=== PATIENT | female | born 1955 | race Caucasian/White ===

== ENCOUNTER 2019-06-12 20:17 | Inpatient (IN) | payer MEDICARE, MEDICAID ==
[~2019-06-12] VITALS: Ht 152.4 cm; Wt 55.3 kg
[2019-06-12] MEDS ORDERED: normal saline 1000ml 1,000 ML IV ONE (20:34)
[2019-06-12] MEDS ORDERED: methylPREDNISolone sod succ 125mg/2ml vial IV ONE (20:35)
[2019-06-12] MEDS ORDERED: ipratropium/albuterol 3ml nebule NEB ONE (20:35)
[2019-06-12 21:10] LABS: ABG BASE EXCESS 2.1 mmol/L (-2.0-3.0); ABG HCO3 29.9 mmol/L (22.0-26.0); ABG OXYGEN SATURATION 93.5 % (95-98); ABG PCO2 (T) 61.6 mmHg (35.0-45.0); ABG PH (T) 7.301 (7.350-7.450); ABG PO2 (T) 69.8 mmHg (83-108); ALLEN'S TEST Positive; FCOHb 1.9 % (0.5-1.5); FLOW 1 L/min; FMetHb 0.2 % (0.3-1.12); FO2Hb 91.5 % (94-100); PATIENT TEMPERATURE 36.5; RESPIRATORY RATE (OBSERVED) 12 b/min; TOTAL HEMOGLOBIN 11.4 G/dl (12.0-16.0)
[2019-06-12 21:21] LABS: BASOPHILS % (AUTO) 0.7 % (0-1); EOSINOPHILS # (AUTO) 0.2 X10'3 (0-0.9); EOSINOPHILS % (AUTO) 3.2 % (0-6); HEMATOCRIT 33.2 % (35.0-45.0); HEMOGLOBIN 10.9 g/dl (12.0-16.0); LYMPHOCYTES # (AUTO) 1.7 X10'3 (1.1-4.8); LYMPHOCYTES % (AUTO) 32.6 % (21-51); MEAN CORPUSCULAR HEMOGLOBIN 31.9 PG (27.0-31.0); MEAN CORPUSCULAR HGB CONC 32.8 g/dL (33.0-36.5); MEAN PLATELET VOLUME 5.9 FL (7.4-10.4); MONOCYTES # (AUTO) 0.3 X10'3 (0-0.9); MONOCYTES % (AUTO) 4.9 % (2-12); NEUTROPHILS # (AUTO) 3.1 X10'3 (1.8-7.7); NEUTROPHILS % (AUTO) 58.6 % (42-75); PLATELET COUNT 238 X10'3 (140-440); RED BLOOD COUNT 3.42 X10'6 (4.20-5.60); WHITE BLOOD COUNT 5.4 X10'3 (4.5-11.0)
[2019-06-12 21:35] LABS: ALANINE AMINOTRANSFERASE 24 U/L (12-78); ALBUMIN 2.9 G/DL (3.4-5.0); ALBUMIN/GLOBULIN RATIO 0.9 (1.1-1.5); ALKALINE PHOSPHATASE 55 IU/L (46-116); ANION GAP 3 (8-16); ASPARTATE AMINO TRANSFERASE 14 U/L (10-37); BILIRUBIN,TOTAL 0.3 MG/DL (0.1-1.0); BLOOD UREA NITROGEN 14 MG/DL (7-18); BUN/CREATININE RATIO 15.1 (6.6-38.0); CALCIUM 7.9 MG/DL (8.5-10.1); CHLORIDE 100 MMOL/L (99-107); CREATININE 0.93 MG/DL (0.40-0.90); GLUCOSE 75 MG/DL (70-104); MAGNESIUM 1.8 MG/DL (1.5-2.4); PARTIAL THROMBOPLASTIN TIME 21 SECONDS (22-32); POTASSIUM 3.9 MMOL/L (3.5-5.1); SODIUM 134 MMOL/L (135-145); TOTAL CARBON DIOXIDE 31.5 MMOL/L (24-32); eGFR 60 ML/MIN
[2019-06-12] MEDS ORDERED: albuterol 2.5 MG/3 ML nebule NEB ONE (22:05)
[2019-06-12] MEDS ORDERED: levoFLOXACIN-Levaquin 750MG/D5 150 ML IV ONE (22:20)
[2019-06-12] MEDS ORDERED: CefTRIAXone/D5W-Rocephin 1gm 50 ML IV ONE (22:20)
--- NOTE | 2019-06-12 22:25 | NUR ---
PT UNABLE TO PROVIDE MEDICATION LIST DUE TO ALOC. NO EXTERNAL MED HX. STATES SHE DOES TAKE MEDICATION AT HOME.
[2019-06-12] MEDS ORDERED: magnesium 2GM in 50ml NS 50 ML IV PRN (22:35)
[2019-06-12] MEDS ORDERED: potassium CL 10mEq/100ml bag 100 ML IV PRN ×2 (22:35)
[2019-06-12] MEDS ORDERED: magnesium Cl slow-release 64mg tablet PO PRN (22:35)
[2019-06-12] MEDS ORDERED: ipratropium/albuterol 3ml nebule NEB PRN ×2 (22:35)
[2019-06-12] MEDS ORDERED: potassium Cl 20 mEq SR tablet PO PRN ×2 (22:35)
[2019-06-12] MEDS ORDERED: magnesium 4gm in 100ml NS 100 ML IV PRN (22:35)
[2019-06-12] MEDS ORDERED: acetaminophen 325mg tablet PO PRN (22:35)
[2019-06-12] MEDS: normal saline 1000ml 1,000 ML IV SCH (23:03)
--- NOTE | 2019-06-12 23:52 | NUR ---
Attempted to call report to receiving RN but was informed by surgical charge operator that receiving RN had just received pt from OR and would call back as soon as she finished medicating pt
[2019-06-13 00:45] VITALS: BP 129/77
--- NOTE | 2019-06-13 01:35 | NUR ---
2015-I called to get report from FaithRN who had tried earlier but i was tending to a post op patient. Faith gave me report plan of care was gone over and I had the opportunity to ask questions. 0040: Patient arrived on a [facility] and charge nurse help transfer pt to bed. Patient was in no apparent distress.
[2019-06-13 03:21] LABS: ALBUMIN 2.7 G/DL (3.4-5.0); ANION GAP 5 (8-16); BLOOD UREA NITROGEN 11 MG/DL (7-18); BUN/CREATININE RATIO 15.7 (6.6-38.0); CALCIUM 7.5 MG/DL (8.5-10.1); CHLORIDE 104 MMOL/L (99-107); GLUCOSE 100 MG/DL (70-104); MAGNESIUM 1.7 MG/DL (1.5-2.4); POTASSIUM 4.4 MMOL/L (3.5-5.1); SODIUM 138 MMOL/L (135-145); TOTAL CARBON DIOXIDE 28.6 MMOL/L (24-32); eGFR 84 ML/MIN
[2019-06-13 03:39] LABS: URINE AMPHETAMINE SCREEN NEGATIVE (Neg); URINE BARBITUATE SCREEN NEGATIVE (Neg); URINE BENZODIAZEPINES SCREEN NEGATIVE (Neg); URINE CANNABINOID SCREEN NEGATIVE (Neg); URINE COCAINE SCREEN NEGATIVE (Neg); URINE METHADONE SCREEN NEGATIVE (Neg); URINE OPIATE SCREEN POSITIVE (Neg); URINE PHENCYCLIDINE SCREEN NEGATIVE (Neg)
[2019-06-13 05:34] LABS: BASOPHILS % (AUTO) 0.3 % (0-1); EOSINOPHILS % (AUTO) 0 % (0-6); HEMATOCRIT 34.6 % (35.0-45.0); HEMOGLOBIN 11.3 g/dl (12.0-16.0); LYMPHOCYTES # (AUTO) 0.3 X10'3 (1.1-4.8); MEAN CORPUSCULAR HGB CONC 32.7 g/dL (33.0-36.5); MEAN CORPUSCULAR VOLUME 97.8 FL (78-98); NEUTROPHILS # (AUTO) 3.2 X10'3 (1.8-7.7); NEUTROPHILS % (AUTO) 90.7 % (42-75); PLATELET COUNT 219 X10'3 (140-440); RED BLOOD COUNT 3.54 X10'6 (4.20-5.60); RED CELL DISTRIBUTION WIDTH 15.2 % (11.5-14.5); WHITE BLOOD COUNT 3.5 X10'3 (4.5-11.0)
--- NOTE | 2019-06-13 06:26 | NUR ---
Problems reprioritized. Patient report given, questions answered & plan of care reviewed with WALLY Scherer.
[2019-06-13] MEDS ORDERED: methylPREDNISolone sod succ/PF 40mg inj. IV SCH (08:00)
[2019-06-13] MEDS: K and/or MAG REPLACEMENT MC SCH (08:00)
[2019-06-13] MEDS: levoFLOXACIN-Levaquin 500mg/D5 100 ML IV SCH (08:48)
[2019-06-13] MEDS: pantoprazole 40mg Tablet.DR PO SCH (08:49)
[2019-06-13] MEDS: enoxaparin 30mg/0.3ml syringe SUBCUT SCH (08:56)
[2019-06-13 09:21] VITALS: BP 150/84
[2019-06-13] MEDS ORDERED: HYDR-4383 PO (10:44)
[2019-06-13] MEDS ORDERED: CYCL10TA26 PO (10:44)
[2019-06-13 11:00] VITALS: BP 151/98
[2019-06-13] MEDS: HYDROcodone/acetaminophen 5mg/325mg tablet PO PRN ×2 (14:11→21:20)
[2019-06-13 18:00] VITALS: BP 141/72
--- NOTE | 2019-06-13 18:33 | NUR ---
Patient in room NA 340. I have received report from WALLY Scherer and had the opportunity to ask questions and assume patient care.
[2019-06-13] MEDS: ipratropium/albuterol 3ml nebule NEB SCH ×2 (20:13→23:49)
[2019-06-13] MEDS: cyclobenzaprine 10mg tablet PO SCH (20:19)
[2019-06-13] MEDS: methylPREDNISolone sod succ/PF 40mg inj. IV SCH (20:19)
[2019-06-13] MEDS: temazepam 15mg capsule PO PRN (21:21)
[2019-06-14] VITALS: BP 151/83
[2019-06-14] MEDS: HYDROcodone/acetaminophen 5mg/325mg tablet PO PRN ×4 (01:38→20:03)
[2019-06-14] MEDS: methylPREDNISolone sod succ/PF 40mg inj. IV SCH ×4 (01:38→19:23)
[2019-06-14 04:40] LABS: BASOPHILS % (AUTO) 0.3 % (0-1); EOSINOPHILS % (AUTO) 0 % (0-6); HEMOGLOBIN 11.1 g/dl (12.0-16.0); LYMPHOCYTES # (AUTO) 0.2 X10'3 (1.1-4.8); LYMPHOCYTES % (AUTO) 2.7 % (21-51); MEAN CORPUSCULAR HEMOGLOBIN 32.4 PG (27.0-31.0); MEAN CORPUSCULAR HGB CONC 33.8 g/dL (33.0-36.5); MEAN CORPUSCULAR VOLUME 95.8 FL (78-98); MEAN PLATELET VOLUME 5.8 FL (7.4-10.4); MONOCYTES # (AUTO) 0.1 X10'3 (0-0.9); MONOCYTES % (AUTO) 2.2 % (2-12); NEUTROPHILS # (AUTO) 5.6 X10'3 (1.8-7.7); NEUTROPHILS % (AUTO) 94.8 % (42-75); PLATELET COUNT 233 X10'3 (140-440); RED BLOOD COUNT 3.44 X10'6 (4.20-5.60); RED CELL DISTRIBUTION WIDTH 14.9 % (11.5-14.5); WHITE BLOOD COUNT 5.9 X10'3 (4.5-11.0)
[2019-06-14 04:44] LABS: ANION GAP 6 (8-16); BLOOD UREA NITROGEN 14 MG/DL (7-18); BUN/CREATININE RATIO 18.7 (6.6-38.0); CALCIUM 8.1 MG/DL (8.5-10.1); CHLORIDE 99 MMOL/L (99-107); CREATININE 0.75 MG/DL (0.40-0.90); GLUCOSE 174 MG/DL (70-104); MAGNESIUM 1.8 MG/DL (1.5-2.4); POTASSIUM 3.8 MMOL/L (3.5-5.1); SODIUM 136 MMOL/L (135-145); eGFR 77 ML/MIN
--- NOTE | 2019-06-14 06:30 | NUR ---
Patient in room NA 340. I have received report from Gutierrez LO and had the opportunity to ask questions and assume patient care.
--- NOTE | 2019-06-14 06:37 | NUR ---
Problems reprioritized. Patient report given, questions answered & plan of care reviewed with WALLY Lozada.
[2019-06-14] MEDS: ipratropium/albuterol 3ml nebule NEB SCH ×5 (07:26→23:00)
[2019-06-14 07:29] VITALS: BP 133/67
[2019-06-14] MEDS: cyclobenzaprine 10mg tablet PO SCH ×2 (07:49→19:22)
[2019-06-14] MEDS: pantoprazole 40mg Tablet.DR PO SCH (07:49)
[2019-06-14] MEDS: levoFLOXACIN-Levaquin 500mg/D5 100 ML IV SCH (07:51)
[2019-06-14] MEDS: enoxaparin 30mg/0.3ml syringe SUBCUT SCH (07:52)
[2019-06-14] MEDS: K and/or MAG REPLACEMENT MC SCH (08:00)
[2019-06-14 11:42] VITALS: BP 152/75
--- NOTE | 2019-06-14 12:30 | NUR ---
Patient in room NA 340. I have received report from WALLY Lozada and had the opportunity to ask questions and assume patient care.
--- NOTE | 2019-06-14 12:30 | NUR ---
Problems reprioritized. Patient report given, questions answered & plan of care reviewed with Alba LO.
[2019-06-14] MEDS: LORazepam 0.5 MG tablet PO PRN (13:44)
[2019-06-14 18:00] VITALS: BP 155/72
--- NOTE | 2019-06-14 18:05 | NUR ---
Problems reprioritized. Patient report given, questions answered & plan of care reviewed with WALLY Whitley.
--- NOTE | 2019-06-14 18:38 | NUR ---
Patient in room NA 340. I have received report from WALLY Willis and had the opportunity to ask questions and assume patient care.
[2019-06-14] MEDS: temazepam 15mg capsule PO PRN (21:19)
[2019-06-15] MEDS: normal saline 1000ml 1,000 ML IV SCH (00:39)
[2019-06-15 00:49] VITALS: BP 142/75
[2019-06-15] MEDS: methylPREDNISolone sod succ/PF 40mg inj. IV SCH ×3 (02:23→14:00)
[2019-06-15 04:45] LABS: BASOPHILS % (AUTO) 0 % (0-1); EOSINOPHILS % (AUTO) 0 % (0-6); HEMATOCRIT 34.6 % (35.0-45.0); HEMOGLOBIN 11.5 g/dl (12.0-16.0); LYMPHOCYTES # (AUTO) 0.3 X10'3 (1.1-4.8); LYMPHOCYTES % (AUTO) 5.1 % (21-51); MEAN CORPUSCULAR HEMOGLOBIN 31.7 PG (27.0-31.0); MEAN CORPUSCULAR HGB CONC 33.3 g/dL (33.0-36.5); MEAN CORPUSCULAR VOLUME 95.2 FL (78-98); MEAN PLATELET VOLUME 6.5 FL (7.4-10.4); MONOCYTES # (AUTO) 0.2 X10'3 (0-0.9); MONOCYTES % (AUTO) 2.4 % (2-12); NEUTROPHILS # (AUTO) 6.2 X10'3 (1.8-7.7); NEUTROPHILS % (AUTO) 92.5 % (42-75); PLATELET COUNT 270 X10'3 (140-440); RED BLOOD COUNT 3.63 X10'6 (4.20-5.60); RED CELL DISTRIBUTION WIDTH 15.4 % (11.5-14.5); WHITE BLOOD COUNT 6.7 X10'3 (4.5-11.0)
[2019-06-15 05:04] LABS: ALBUMIN 2.9 G/DL (3.4-5.0); ANION GAP 5 (8-16); BLOOD UREA NITROGEN 22 MG/DL (7-18); BUN/CREATININE RATIO 37.3 (6.6-38.0); CALCIUM 8.3 MG/DL (8.5-10.1); CHLORIDE 99 MMOL/L (99-107); CREATININE 0.59 MG/DL (0.40-0.90); GLUCOSE 129 MG/DL (70-104); SODIUM 137 MMOL/L (135-145); TOTAL CARBON DIOXIDE 32.9 MMOL/L (24-32); eGFR > 90 ML/MIN
[2019-06-15 05:06] LABS: POTASSIUM 4.5 MMOL/L (3.5-5.1)
--- NOTE | 2019-06-15 06:12 | NUR ---
Problems reprioritized. Patient report given, questions answered & plan of care reviewed with WALLY Willis.
--- NOTE | 2019-06-15 06:13 | NUR ---
Patient in room NA 340. I have received report from WALLY Whitley and had the opportunity to ask questions and assume patient care.
[2019-06-15 07:00] VITALS: BP 155/88
[2019-06-15] MEDS: ipratropium/albuterol 3ml nebule NEB SCH ×2 (07:31→11:04)
[2019-06-15] MEDS: K and/or MAG REPLACEMENT MC SCH (07:59)
[2019-06-15] MEDS: pantoprazole 40mg Tablet.DR PO SCH (08:05)
[2019-06-15] MEDS: levoFLOXACIN-Levaquin 500mg/D5 100 ML IV SCH (08:05)
[2019-06-15] MEDS: cyclobenzaprine 10mg tablet PO SCH (08:05)
[2019-06-15] MEDS: HYDROcodone/acetaminophen 5mg/325mg tablet PO PRN ×2 (08:06→15:13)
[2019-06-15] MEDS: enoxaparin 30mg/0.3ml syringe SUBCUT SCH (08:06)
[2019-06-15] MEDS ORDERED: lactobacillus rhamnosus 10,000 MMU CELLS/CAPSULE PO SCH (08:45)
[2019-06-15] MEDS: LORazepam 0.5 MG tablet PO PRN (09:34)
[2019-06-15] MEDS ORDERED: LEVO500T89 PO ×2 (10:48→12:20)
[2019-06-15] MEDS ORDERED: BUDE10.2 INH (10:48)
[2019-06-15] MEDS ORDERED: ALBU8.5H8 INH (10:48)
[2019-06-15] MEDS ORDERED: PRED10TA23 PO (10:48)
[2019-06-15] MEDS ORDERED: PANT40TA4 PO (10:48)
[2019-06-15] MEDS ORDERED: LACT1CAP26 PO (10:48)
[2019-06-15 11:00] VITALS: BP 152/84
[2019-06-15] MEDS ORDERED: levoFLOXACIN 500mg tablet PO SCH (11:00)
--- NOTE | 2019-06-15 11:00 | NUR ---
Patient discharge order in. Discussed with patient about being discharged and patient stated that she doesn't feel ready to leave. She stated that she feels like she can not leave today. Medi-care form given to patient and educated patient on reading through what steps to take in order to appeal discharge. patient stated that she can not dial the number. It was offered for us to dial phone number for her. Patient stated that she is unable to follow the instructions and can't do it. Patient was told that with this situation the nurses can not be the ones to make the call, if she really feels she is not ready to leave then she has to be able to appeal her discharge. patient stated an understanding but still refused to make the phone call. MD mariscal.
--- NOTE | 2019-06-15 12:30 | NUR ---
in to see patient. MD ordered a repeat chest x-ray just to make sure that there are not any new issues with her lungs. If no new complications then patient is okay to discharge.
[2019-06-15] MEDS ORDERED: diltiazem CD 120mg capsule (once-daily) PO SCH (12:50)
[2019-06-15] MEDS ORDERED: CARCD120C PO (12:54)
--- NOTE | 2019-06-15 14:00 | NUR ---
okay'd discharge and added cardizem to patient's discharge medications with a 1 time dose to be given now due to patient heart rate being elevated. Patient given medication and informed of discharge. Patient started to get worked up and anxious due to not wanting to leave. It is too early to give patient another dose of Ativan. wrote another prescription for the patient to take with her for Ativan and [place].
--- NOTE | 2019-06-15 14:30 | NUR ---
Patient asked if she would have a ride to [facility] Patient stated that she does not have a ride. cell manager called and involved in situation. She stated to have the patient take a taxi to [facility] Also if the patient is unwilling to make the call to [facility] to appeal her discharge then there is not a whole lot that we can do for her being that we can not make the phone call for her.
[2019-06-15] MEDS ORDERED: LORazepam 2 mg/ml vial IV ONE (15:50)
--- NOTE | 2019-06-15 16:00 | NUR ---
Patient stated that she can not take a taxi because she wont be able to get into the [facility] without a walker. Patient stated that she has a walked in her room but that no one at the facility will bring the walker out to her. Speech/Language Therapist was informed of this issue and was able to get the patient a ride with [facility].
--- NOTE | 2019-06-15 17:00 | NUR ---
Patient heart rate came down to 85. This meets MD's criteria for discharge.
--- NOTE | 2019-06-15 18:00 | NUR ---
Patient discharged back to home which is the [facility]. Patient taken there by [facility] and taken from unit via [facility]. Patient alert and oriented at time of discharge. Patient was much less anxious at time of discharge and stated feeling a lot less stressed. PIV removed with cannula intact. Patient was given discharge instructions and was given time for questions and answers. Patient stated an understanding of discharge instructions. Patient was given new prescriptions that were filled with [facility]. Patient was delivered all medications and was educated on the use of each one. Patient stated an understanding of all of this. Patient took all belongings with her including discharge instructions and medications.
== END 2019-06-15 18:06 | disposition home health service (06) | DRG 189 ==
LOC: ER 20:18 → SUR 3N 06-13 00:34
PROVIDERS: ADMIT Internal Medicine; ATTEND Family Medicine
DX: J96.20 Acute and chronic respiratory failure, unspecified whether with hypoxia or hypercapnia (principal); G93.41 Metabolic encephalopathy; J18.1 Lobar pneumonia, unspecified organism; J44.1 Chronic obstructive pulmonary disease with (acute) exacerbation; J44.0 Chronic obstructive pulmonary disease with (acute) lower respiratory infection; D64.9 Anemia, unspecified; E03.9 Hypothyroidism, unspecified; F12.90 Cannabis use, unspecified, uncomplicated; F17.210 Nicotine dependence, cigarettes, uncomplicated; F41.9 Anxiety disorder, unspecified; G89.29 Other chronic pain; K80.20 Calculus of gallbladder without cholecystitis without obstruction; M54.9 Dorsalgia, unspecified; M79.604 Pain in right leg; M79.605 Pain in left leg; R53.81 Other malaise; I10 Essential (primary) hypertension; K21.9 Gastro-esophageal reflux disease without esophagitis; Z59.0 Homelessness; Z89.512 Acquired absence of left leg below knee; Z90.710 Acquired absence of both cervix and uterus; Z99.81 Dependence on supplemental oxygen; Z88.0 Allergy status to penicillin; Z88.1 Allergy status to other antibiotic agents; Z86.14 Personal history of Methicillin resistant Staphylococcus aureus infection; Z71.6 Tobacco abuse counseling
CPT/HCPCS: 36415; 36600; 71045; 80048; 80053; 80305; 82803; 83605; 83735; 84443; 84484; 85018; 85025; 85610; 85730; 87040; 87070; 87081; 93005; 94640; 94667; 94668; 94760; 96361; 96365; 96367; 96375; 97116; 97161; 97530; 99285; G0378; J0696; J1650; J1956; J2060; J2920; J2930; J7030